=== PATIENT | male | born 1940 | race Caucasian/White ===

== ENCOUNTER → 2023-07-30 11:50 | Outpatient (REF) | payer MEDICARE, SELFPAY | LOC: RAD 11:50 | PROVIDERS: ATTENDING PHYSICIAN Nurse Practitioner | DX: M54.50 Low back pain, unspecified (principal) | CPT/HCPCS: 72110 ==

== ENCOUNTER → 2024-05-16 16:18 | Outpatient (REF) | payer MEDICARE, SELFPAY | LOC: RAD 16:18 | PROVIDERS: ATTENDING PHYSICIAN Nurse Practitioner | DX: J20.0 Acute bronchitis due to Mycoplasma pneumoniae (principal) | CPT/HCPCS: 71046 ==

== ENCOUNTER → 2024-07-29 10:05 | Outpatient (REF) | payer MEDICARE, SELFPAY ==
[2024-07-29 10:50] LABS: % Basophils 0.4 % (0-2); % Eosinophils 2.6 % (0-6); % Immature Granulocytes 0.4 % (0-0.5); % Lymphocytes 30.7 % (20.5-51.1); % Monocytes 12.7 % (1.7-9.3); % Neutrophils 53.2 % (42.2-75.2); Absolute Eosinophils 0.1 10^3/uL (0-0.7); Absolute Lymphocytes 1.5 10^3/uL (1.2-3.4); Absolute Monocytes 0.6 10^3/uL (0.1-0.6); Absolute Neutrophils 2.6 10^3/uL (1.4-6.5); Hematocrit 39.4 % (39.0-52.0); Hemoglobin 13.1 g/dL (13.0-18.0); Mean Corp Hgb Conc. 33.2 g/dL (33.0-37.0); Mean Corpuscular Hgb 32.3 pg (27.0-31.0); Mean Platelet Volume 9.5 fL (7.4-10.4); Nucleated Red Blood Cells % 0 % (-); Platelet Count 215 10^3/uL (130-400); Red Blood Cell Count 4.06 10^6/uL (4.70-6.10); Red Cell Dist. Width 13.7 % (11.5-14.5)
[2024-07-29 12:10] LABS: ALT (SGPT) 21 U/L (0-50); AST (SGOT) 28 U/L (17-59); Albumin 3.7 g/dl (3.5-5.0); Alkaline Phosphatase 63 U/L (38-126); Blood Urea Nitrogen 15 mg/dl (9-20); Calcium 10.1 mg/dl (8.4-10.2); Carbon Dioxide 27 mmol/L (22-30); Chloride 104 mmol/L (98-107); Glucose 100 mg/dl (70-99); HDL Cholesterol 73 mg/dl; LDL Cholesterol, Calculated 111 mg/dl; Potassium 4.9 mmol/L (3.5-5.1); Sodium 136 mmol/L (135-145); Total Bilirubin 0.5 mg/dl (0.2-1.3); Total Cholesterol 194 mg/dl (50-199); Total Protein 6.4 g/dl (6.3-8.2); Triglyceride 53 mg/dl (10-149); Very Low Density Lipoprotein 10 mg/dl (0-30); eGFR > 60.00
[2024-07-29 12:31] LABS: PSA, Total - Screen 4.04 ng/ml (0.0-4.0); TSH 1.84 uIU/ml (0.47-4.68)
== END ==
LOC: REG 10:05
PROVIDERS: ATTENDING PHYSICIAN Internal Medicine; FAMILY PHYSICIAN Internal Medicine; OTHER PHYSICIAN Hospitalist
DX: I49.9 Cardiac arrhythmia, unspecified (principal); E78.00 Pure hypercholesterolemia, unspecified; Z12.5 Encounter for screening for malignant neoplasm of prostate; Z00.00 Encounter for general adult medical examination without abnormal findings; M79.5 Residual foreign body in soft tissue
CPT/HCPCS: 36415; 70100; 80053; 80061; 84443; 85025; G0103

== ENCOUNTER → 2025-02-16 12:08 | Outpatient (REF) | payer MEDICARE, SELFPAY | LOC: REG 12:08 | PROVIDERS: ATTENDING PHYSICIAN Surgery; FAMILY PHYSICIAN Internal Medicine | DX: Z12.5 Encounter for screening for malignant neoplasm of prostate (principal); N40.1 Benign prostatic hyperplasia with lower urinary tract symptoms | CPT/HCPCS: 36415; 84153; 84154 ==